=== PATIENT | female | born 1980 | race African-American/Black ===

== ENCOUNTER 2018-06-07 10:24 | Emergency (ER) | payer MEDICAID, OTHER ==
[~2018-06-07] VITALS: Ht 154.9 cm; Wt 75.0 kg
[2018-06-07 11:00] VITALS: BP 124/62
== END 2018-06-07 13:43 | disposition home or self-care (01) ==
LOC: ER 12:52
DX: K08.89 Other specified disorders of teeth and supporting structures (principal)
CPT/HCPCS: 81025; 99283

== ENCOUNTER 2018-07-29 09:47 | Emergency (ER) | payer SELFPAY ==
[~2018-07-29] VITALS: Ht 154.9 cm; Wt 79.0 kg
[2018-07-29 09:50] VITALS: BP 146/71
== END 2018-07-29 11:08 | disposition home or self-care (01) ==
LOC: ER 09:47
DX: N75.0 Cyst of Bartholin's gland (principal)
CPT/HCPCS: 81025; 99283